=== PATIENT | female | born 2000 | race Caucasian/White ===

== ENCOUNTER 2020-04-07 19:04 | Emergency (ER) | payer SELFPAY ==
[2020-04-07] MEDS ORDERED: HYDROCODONE/ACETAMINOPHEN 5-325 MG TABLET PO ONE (19:25)
[2020-04-07] MEDS ORDERED: AMOXICILLIN TR/POT CLAVULANATE 875-125 MG TAB PO ONE (19:25)
--- NOTE | 2020-04-07 19:28 | ER Document Report ---
HPI - HPI Patient complains to provider of: Animal bite Time Seen by Provider: 04/07/20 19:24 Onset: Just prior to arrival Onset/Duration: Sudden Quality of pain: Achy Pain Level: 5 Context: Patient states that her neighbors dogs were trying to attack her and one dog bit her right hand and her left forearm. Patient reports her tetanus immunization is up-to-date. Patient is uncertain of the dog's immunization status. Patient with puncture wounds to the left forearm and right hand. Associated Symptoms: denies: Fever, Nausea, Vomiting Exacerbated by: Movement Relieved by: Denies Similar symptoms previously: No Recently seen / treated by doctor: No - ROS ROS below otherwise negative: Yes Systems Reviewed and Negative: Yes All other systems reviewed and negative - CONSTITUTIONAL Constitutional: DENIES: Fever, Chills - NEURO Neurology: DENIES: Weakness - GASTROINTESTINAL Gastrointestinal: DENIES: Nausea - REPRODUCTIVE LMP: 03-25-20 Reproductive: DENIES: : - MUSCULOSKELETAL Musculoskeletal: REPORTS: Extremity pain - DERM Skin Color: Normal Skin Problems: None, Abrasion, Laceration, Puncture Wound Past Medical History - General Information source: Patient - Social History Smoking Status: Never Smoker Chew tobacco use (# tins/day): No Frequency of alcohol use: None Drug Abuse: None Occupation: [employer] Lives with: Family Family History: Reviewed & Not Pertinent - Medical History Medical History: Negative Surgical Hx: Negative - Immunizations Immunizations up to date: Yes Vertical Provider Document - CONSTITUTIONAL Agree With Documented VS: Yes Exam Limitations: No Limitations General Appearance: WD/WN, No Apparent Distress - HEENT HEENT: Atraumatic, Normocephalic - NECK Neck: Normal Inspection, Supple - RESPIRATORY Respiratory: Breath Sounds Normal, No Respiratory Distress - CARDIOVASCULAR Cardiovascular: Regular Rhythm, No Murmur, Tachycardia Pulses: Normal: Radial - MUSCULOSKELETAL/EXTREMETIES Musculoskeletal/Extremeties: MAEW, FROM, Tender - Left forearm, right hand, Eccymosis - Right hand - NEURO Level of Consciousness: Awake, Alert, Appropriate Motor/Sensory: No Motor Deficit - DERM Integumentary: Warm, Dry Notes: Puncture wound to dorsal and volar aspect of left forearm, no active bleeding with small abrasions surrounding area. Small puncture wound to dorsal aspect of right hand. Patient with broken nail to right thumb with blood along the margin of distal nail Course - Re-evaluation Re-evalutation: 04/07/20 19:49 No retained foreign body to puncture wounds. Discussed worsening signs or symptoms that patient should return immediately for. Discussed process turning need for rabies prophylaxis. Animal is known pet the neighbor. Patient encouraged to speak with eyeglass cutter or animal control to further investigate the rabies vaccination status of the animal. Patient advised that if she is unable to determine whether or not the animal has been vaccinated after speaking with neighbor or discussing this with animal control that she can come back here to receive the rabies vaccination series. - Vital Signs Vital signs: Temp Pulse Resp BP Pulse Ox 98.5 F 119 H 20 140/94 H 99 04/07/20 19:07 04/07/20 19:07 04/07/20 19:07 04/07/20 19:07 04/07/20 19:07 - Laboratory Results Critical Laboratory Results Reviewed: No Critical Results - Radiology Results Critical Radiology Results Reviewed: No Critical Results Discharge - Discharge Clinical Impression: Dog bite of multiple areas Puncture wound of forearm, left Qualifiers: Encounter type: initial encounter Qualified Code(s): S51.832A - Puncture wound without foreign body of left forearm, initial encounter Puncture wound, hand Qualifiers: Encounter type: initial encounter Foreign body presence: without foreign body Laterality: right Qualified Code(s): S61.431A - Puncture wound without foreign body of right hand, initial encounter Condition: Stable Disposition: HOME, SELF-CARE Instructions: Animal Bites ([facility]), Antibiotic Ointment Protection ([facility]), Augmentin ([facility]), Dressing Instructions for Open Wounds ([facility]), Oral Narcotic Medication ([facility]), Prophylactic Antibiotic ([facility]), Tetanus Immunization Given (O ) Additional Instructions: Return immediately for any new or worsening symptoms or for any signs of infection such as redness, streaks, fever, purulent drainage or any concerning symptoms Followup with your primary care provider, call tomorrow to make a followup appointment Return to the emergency department as needed for rabies vaccination series if animal is not vaccinated or you are unable to find out the animals vaccination status given the upcoming holiday Prescriptions: Amoxicillin/Potassium Clav [Augmentin 875-125 Tablet] 1 tab PO BID #14 tab Naproxen [Naprosyn 250 Nmg Tablet] 1 tab PO BID #14 tablet Hydrocodone/Acetaminophen [Upper [place]ract 5-325 mg Tablet] 1 tab PO Q6 PRN #10 tablet PRN Reason: Forms: Return to Work Referrals: [facility] [Provider Group] - Follow up as needed
--- NOTE | 2020-04-07 20:22 | RADIOLOGY REPORT (SQ) ---
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 FINDINGS: 2 views were obtained. Soft tissue swelling is noted about the dorsal/radial aspect of the mid forearm. No underlying acute fracture or dislocation is evident. No definite retained radiopaque foreign body. IMPRESSION: No acute osseous anomaly. Soft tissue swelling about the dorsal/radial aspect of the mid forearm. No retained radiopaque foreign body.
[2020-04-07 20:27] VITALS: BP 122/77
--- NOTE | 2020-04-07 20:27 | RADIOLOGY REPORT (SQ) ---
EXAM DESCRIPTION: HAND RIGHT 3 VIEWS CLINICAL HISTORY: 20 years Female, dog bite, thumb, 2/3 MC pw COMPARISON: None. FINDINGS: Bone mineralization is normal. Alignment of the hand is anatomic. No radiopaque foreign body. No fracture. No erosions or periostitis. IMPRESSION: No acute process.
== END 2020-04-07 20:31 | disposition home or self-care (01) ==
LOC: ER 19:04
DX: S51.832A Puncture wound without foreign body of left forearm, initial encounter (principal); S61.431A Puncture wound without foreign body of right hand, initial encounter; S51.851A Open bite of right forearm, initial encounter; W54.0XXA Bitten by dog, initial encounter
CPT/HCPCS: 99284; 73090; 73130; J3490